=== PATIENT | male | born 1950 | race American Indian/Alaskan Native ===

== ENCOUNTER 2017-02-26 15:11 | Emergency (ER) | payer MEDICARE ==
--- NOTE | 2017-02-26 17:45 | Emergency Department Report ---
ED Medical Clearance HPI - General Chief complaint: Recheck/Abnormal Lab/Rx Stated complaint: OUT OF HIGH BP MEDS Time Seen by Provider: 02/26/17 17:31 Source: patient Mode of arrival: Ambulatory - History of Present Illness Initial comments: 67-year-old male past medical history abdominal aortic aneurysm, hypertension presents with complaint of running out of his metoprolol and losartan/ hydrochlorothiazide 2 days ago. Patient denies any headache dizziness chest pain palpitations shortness of breath nausea vomiting abdominal pain up her lower extremity paresthesias. States he has been in normal state of health otherwise. Patient is requesting primary care referral as he does not currently have a primary care doctor. Onset/Timin -: days(s) Compliant with Home Medications: Yes Home medications: Home Medications Medication Instructions Recorded Confirmed Last Taken Atenolol [Tenormin] 100 mg PO DAILY 02/02/14 02/02/14 Unknown Previous Rx's Medication Instructions Recorded Last Taken Type traMADol [Ultram] 50 mg PO Q6HR PRN #20 tablet 08/15/16 Unknown Rx Losartan/Hydrochlorothiazide 1 each PO QDAY #30 tablet 02/26/17 Unknown Rx [Losartan-Hctz 50-12.5 mg Tab] Metoprolol [Lopressor TAB] 25 mg PO BID #60 tablet 02/26/17 Unknown Rx Allergies/Adverse reactions: Allergies Allergy/AdvReac Type Severity Reaction Status Date / Time aspirin AdvReac Vomiting Verified 02/02/14 08:26 ED Review of Systems ROS: Stated complaint: OUT OF HIGH BP MEDS Other details as noted in HPI Constitutional: denies: chills, fever Eyes: denies: eye pain, eye discharge, vision change ENT: denies: ear pain, throat pain Respiratory: denies: cough, shortness of breath, wheezing Cardiovascular: denies: chest pain, palpitations Endocrine: no symptoms reported Gastrointestinal: denies: abdominal pain, nausea, diarrhea Genitourinary: denies: urgency, dysuria Musculoskeletal: denies: back pain, joint swelling, arthralgia Skin: denies: rash, lesions Neurological: denies: headache, weakness, paresthesias Psychiatric: denies: anxiety, depression Hematological/Lymphatic: denies: easy bleeding, easy bruising ED Past Medical Hx - Past Medical History Hx Hypertension: Yes - Surgical History Additional Surgical History: Aneurysm removed january 2014 at [facility](in [place]) - Social History Smoking Status: Never Smoker Substance Use Type: None - Medications Home Medications: Home Medications Medication Instructions Recorded Confirmed Last Taken Type Atenolol [Tenormin] 100 mg PO DAILY 02/02/14 02/02/14 Unknown History traMADol [Ultram] 50 mg PO Q6HR PRN #20 tablet 08/15/16 Unknown Rx Losartan/Hydrochlorothiazide 1 each PO QDAY #30 tablet 02/26/17 Unknown Rx [Losartan-Hctz 50-12.5 mg Tab] Metoprolol [Lopressor TAB] 25 mg PO BID #60 tablet 02/26/17 Unknown Rx ED Physical Exam - General Limitations: No Limitations General appearance: alert, in no apparent distress - Head Head exam: Present: atraumatic, normocephalic - Eye Eye exam: Present: normal appearance, PERRL, EOMI - ENT ENT exam: Present: mucous membranes moist - Neck Neck exam: Present: normal inspection - Respiratory Respiratory exam: Present: normal lung sounds bilaterally. Absent: respiratory distress - Cardiovascular Cardiovascular Exam: Present: regular rate, normal rhythm. Absent: systolic murmur, diastolic murmur, rubs, gallop - GI/Abdominal GI/Abdominal exam: Present: soft, normal bowel sounds - Rectal Rectal exam: Present: deferred - Extremities Exam Extremities exam: Present: normal inspection - Back Exam Back exam: Present: normal inspection - Neurological Exam Neurological exam: Present: alert, oriented X3 - Psychiatric Psychiatric exam: Present: normal affect, normal mood - Skin Skin exam: Present: warm, dry, intact, normal color. Absent: rash ED Course Vital Signs 02/26/17 16:28 Temperature 97.1 F L Pulse Rate 50 L Respiratory 18 Rate Blood Pressure 124/67 O2 Sat by Pulse 100 Oximetry ED Medical Decision Making - Medical Decision Making A/P: Medication refill 1-metoprolol and losartan/hydrochlorothiazide refill 2-patient referred to primary care ED Disposition Clinical Impression: Medication refill Disposition: TO HOME OR SELFCARE Is pt being admited?: No Does the pt Need Aspirin: No Condition: Stable Instructions: Hypertension (ED) Prescriptions: Losartan/Hydrochlorothiazide [Losartan-Hctz 50-12.5 mg Tab] 1 each PO QDAY #30 tablet Metoprolol [Lopressor TAB] 25 mg PO BID #60 tablet Referrals: DIONI PALOMO MD [Staff Physician] - 3-5 Days [facility] [Outside] - 3-5 Days [facility] [place] [Outside] - 3-5 Days Forms: Accompanied Note, Work/School Release Form(ED) Time of Disposition: 17:44
[2017-02-26 18:13] VITALS: BP 125/65
== END 2017-02-26 18:11 | disposition home or self-care (01) ==
LOC: ED 15:11
DX: Z76.0 Encounter for issue of repeat prescription (principal); I10 Essential (primary) hypertension; Z79.82 Long term (current) use of aspirin
CPT/HCPCS: 99282